=== PATIENT | male | born 1985 | race Caucasian/White ===

== ENCOUNTER 2019-01-29 01:54 | Inpatient (IN) ==
[~2019-01-29 01:54] MED LIST: AMIDATE ONE; DIPRIVAN 1% 1,000 MG/100 ML BOTTLE ONE; QUELICIN ONE
[2019-01-29] MEDS ORDERED: NS 1,000 ML ONE (01:57)
[2019-01-29] MEDS ORDERED: AMIDATE IV ONE (02:15)
[2019-01-29] MEDS ORDERED: DIPRIVAN 1% IV ONE (02:15)
[2019-01-29] MEDS ORDERED: QUELICIN IV ONE (02:15)
[2019-01-29] MEDS ORDERED: NS 1,000 ML IV ONE ×3 (02:15→04:45)
[2019-01-29] MEDS: DIPRIVAN 1% 1,000 MG/100 ML BOTTLE IV SCH ×14 (02:16→22:24)
[2019-01-29] MEDS ORDERED: PROTONIX 80 MG in NS 80 ML IV SCH (02:45)
[2019-01-29 02:56] LABS: BE -3.9 mmoll (-3.0-3.0); BLOOD TYPE ARTERIAL; HCO3-(ACT) 21.7 mmoll (20.0-26.0); METHB 1.3 % (0.0-1.5); O2(CT) 23.7 mL/dL (15.0-23.0); O2HB 91.8 % (95.0-99.0); PCO2(98.6) 43 mmHg (35-45); PO2(98.6) 113 mmHg (60-100); SAMPLE BLOOD; SAO2 99.5 % (95.0-100.0); THB 18.3 g/dL (11.5-17.4); pH(98.6) 7.32 (7.35-7.45)
[2019-01-29 02:57] LABS: SRATE 14 BPM; TVOL 550 mL
[2019-01-29 03:04] LABS: URINE SOURCE CATH
[2019-01-29] MEDS ORDERED: LABETALOL IV ONE (03:05)
[2019-01-29] MEDS ORDERED: ATIVAN IV ONE (03:05)
[2019-01-29 03:06] LABS: BASO# 0.06 X1000 (0.0-0.2); BASO% 0.5 % (0.0-0.8); EOS# 0.19 X1000 (0.0-0.7); EOS% 1.7 % (0.0-10.0); HEMATOCRIT 52.7 % (42.0-52.0); IMM GRAN# 0.02 X1000 (0.0-0.04); IMM GRAN% 0.2 % (0.0-0.5); LYMPH# 2.61 X1000 (1.2-3.4); LYMPH% 22.9 % (20.5-51.1); MCH 32.3 PG (27-31); MCHC 34.2 g/dL (33-37); MCV 94.4 FL (81-99); MONO# 1.12 X1000 (0.11-0.59); MONO% 9.8 % (1.7-9.3); MPV 12.1 FL (7.4-10.4); NEUT% 64.9 % (42.2-75.2); PLT 302 X1000 (130-400); RBC 5.58 XMIL (4.7-6.1); RDW 13.8 % (11.5-14.5)
[2019-01-29 03:29] LABS: ACETAMINOPHEN < 1.2 ug/mL (10-30); AGAP 17; ALBUMIN 4.7 g/dL (3.5-5.0); ALKALINE PHOSPHATASE 81 U/L (32-122); BUN 8 mg/dL (8-22); CALCIUM 9.1 mg/dL (8.8-10.2); CHLORIDE 100 mmol/L (98-107); COSMO 273; CREATININE 0.8 mg/dL (0.7-1.2); ESTIMATED GFR > 60; GLUCOSE 112 mg/dL (70-104); GOT 23 U/L (10-34); GPT 18 U/L (10-44); POTASSIUM 3.4 mmol/L (3.5-5.1); SALICYLATES < 3.00 mg/dL (3-10); SODIUM 137 mmol/L (136-145); TCO2 21 mmol/L (25-35); TOTAL BILIRUBIN < 0.15 mg/dL (0.20-1.00); TOTAL PROTEIN 7.6 g/dL (6.3-8.3)
[2019-01-29 03:29] LABS: BILIRUBIN URINE NEGATIVE (NEGATIVE); BLOOD URINE TRACE (NEGATIVE); CLARITY CLEAR (CLEAR); COLOR YELLOW; GLUCOSE URINE NEGATIVE (NEGATIVE); KETONE URINE NEGATIVE (NEGATIVE); LEUKOCYTES URINE NEGATIVE (NEGATIVE); NITRITE URINE NEGATIVE (NEGATIVE); PROTEIN URINE TRACE mg/dL (NEGATIVE); UROBILINOGEN URINE NORMAL
[2019-01-29 03:33] LABS: URINE BACTERIA 1+ /HFP; URINE EPITHELIAL CELLS <10 /HPF (<10); URINE RBC <10 /HPF (<10); URINE WBC <10 /HPF (<10)
[2019-01-29 03:47] LABS: BE -6.7 mmoll (-3.0-3.0); BLOOD TYPE ARTERIAL; HCO3-(ACT) 19.3 mmoll (20.0-26.0); O2(CT) 22.5 mL/dL (15.0-23.0); PCO2(98.6) 39 mmHg (35-45); PO2(98.6) 58 mmHg (60-100); SAMPLE BLOOD; SAO2 91.7 % (95.0-100.0); THB 18.5 g/dL (11.5-17.4)
[2019-01-29] MEDS ORDERED: DUONEB (A & A) INH ONE (03:50)
[2019-01-29 03:54] LABS: UR AMPHETAMINES QUAL NONE DETECTED (NONE DETECT); UR BARBITUATES QUAL NONE DETECTED (NONE DETECT); UR BENZODIAZEPIN QUAL NONE DETECTED (NONE DETECT); UR CANNABINOIDS QUAL PRESUMPTIVE POSITIVE (NONE DETECT); UR COCAINE QUAL NONE DETECTED (NONE DETECT); UR METHADONE QUAL PRESUMPTIVE POSITIVE (NONE DETECT); UR METHAMPHETAMINE QUAL NONE DETECTED (NONE DETECT); UR OPIATES QUAL NONE DETECTED (NONE DETECT); UR OXYCODONE QUAL NONE DETECTED (NONE DETECT); UR PCP QUAL NONE DETECTED (NONE DETECT); UR PROPOXYPHENE QUAL NONE DETECTED (NONE DETECT); UR TCA QUAL NONE DETECTED (NONE DETECT)
[2019-01-29 04:02] LABS: ALLEN TEST NO; MODALITY VENTILATOR
[2019-01-29] MEDS ORDERED: ZITHROMAX 500 MG/NS 500 MG/250 ML IVPB IV ONE (04:04)
[2019-01-29] MEDS ORDERED: ROCEPHIN 2 GM in NS 50 ML IV ONE (04:04)
[2019-01-29 04:05] LABS: ALLEN TEST NO; MODALITY VENTILATOR; O2HB 86.7 % (95.0-99.0)
--- NOTE | 2019-01-29 04:27 | PROVIDER DOCUMENTATION ---
This chart was entered by Karey Diaz Scribe, acting as scribe for Germán Garcia MD. [id number] Abuse/Overdose - General Chief Complaint: Overdose Stated Complaint: OVERDOSE Time Seen by Provider: 01/29/19 01:56 Source: EMS Allergies/Adverse Reactions: Allergies Allergy/AdvReac Type Severity Reaction Status Date / Time Sulfa (Sulfonamide AdvReac RASH Verified 08/06/18 16:15 Antibiotics) - History of Present Illness-Drug/Alcohol Nature of Presenting Problem: pt is a 33 yowm presenting w/first resp ems w/a drug overdose. family told ems pt took approx 100 25 mg tablets of benadryl, and unknown amt of Zilretta, on scene only 2 pills were found. ems sts pt drank 8 12oz beers in last 4 hours. pt given 4 narcan enroute. ems looked for pt walking in drainage ditch for 1.5hr and found him face down. pt had attempted to run away. pt is hypertensive, tacyhpnic and tachycardic. pt bag assisted and oral airway is in place among arrival. ems sts pt has hx of drug abuse and has ran away before. This episode of drinking or use began:: 1-3 hours ago - Substance Abuse Substance Use: reports: none presently/history of abuse, alcohol - Overdose List substance(s) ingested.: benadryl and zilretta Suicide Risk Assessment: male sex, age >65, drug or ETOH abuse Review of Systems - Adult - REVIEW OF SYSTEMS - ADULT ROS:: limited per condition (ros per ems) Constitutional: reports: no symptoms reported Eyes: reports: no symptoms reported Ears, Nose, Mouth & Throat: reports: no symptoms reported Cardiovascular: reports: no symptoms reported Respiratory: reports: no symptoms reported Gastrointestinal: reports: no symptoms reported Genitourinary: reports: no symptoms reported Musculoskeletal: reports: no symptoms reported Integumentary: reports: no symptoms reported Neurological: reports: no symptoms reported Psychiatric: reports: alcohol/drug dependence (drug OD) Endocrine: reports: no symptoms reported Hematologic/Lymphatic: reports: no symptoms reported Allergic/Immunologic: reports: no symptoms reported All Other Systems: Reviewed and Negative Past History - Adult - PAST MEDICAL HISTORY-ADULT Review of Records: reports: Old Records Reviewed, Nursing Assessment Review, Medications Reviewed, Social history reviewed & non-contributory. Major Childhood Illnesses: reports: denies history Cardiovascular: reports: denies history Respiratory: reports: denies history Gastrointestinal: reports: denies history Obstetrical/Gynecological: reports: denies history Genitourinary: reports: denies history Musculoskeletal: reports: denies history Neurological: reports: denies history Endocrine/Immune: reports: denies history Other Conditions: reports: denies history - IMMUNIZATION STATUS Childhood Immunizations: See Nurse Assessment Flu Vaccine: See Nurse Assessment - FAMILY HISTORY Family History: reviewed, not pertinent - SOCIAL HISTORY Substance Use: none presently/history of abuse, alcohol Physical Exam-General - PHYSICAL EXAM-ADULT Initial Vital Signs Reviewed: Yes - CONSTITUTIONAL General Appearance: obtunded - EYES Eyes: other (3-4mm bilat, sluggish). negative: PERRL/EOMI, EOM palsy, subconjunctival hemorrhage - RESPIRATORY Respiratory: chest non-tender, normal breath sounds, no pleuratic chest pain, rhonchi (some left lung), other (tachypnic, pt has good breath sounds but has large amt of fluid in lungs.). negative: lungs clear, decreased breath sounds, stridor, wheezing - CARDIOVASCULAR Cardiovascular: normal peripheral pulses, tachycardia, other (htn, 168/112, 176/123). negative: regular rate, rhythm, extra beats, friction rub, irregularly irregular - GASTROINTESTINAL (ABDOMEN) Abdominal Exam: distended. negative: soft - MUSCULOSKELETAL Peripheral Pulses: radial (R): 2+, radial (L): 2+ - SKIN Integumentary: normal color, normal turgor, warm/dry, abrasion(s) (rt knee), other (dirt left leg). negative: diaphoresis, laceration(s), warm - NEUROLOGIC Neurologic: other (unable to assess due to pt conditon) - PSYCHIATRIC Psych/Mental Status: disoriented x 3, disheveled. negative: normal mood/affect, normal thought content, normal thought process, oriented x 3 Progress - PLAN OF CARE/RESULTS Progress/Plan/Lab Results: Vital Signs - 8 hr 01/29/19 02:30 01/29/19 03:00 01/29/19 03:55 Temperature 96.8 F L Pulse Rate 113 H 82 Respiratory Rate 27 H 18 Blood Pressure 191/138 O2 Sat by Pulse Oximetry 96 98 Laboratory Results - last 24 hr 01/29/19 01/29/19 01/29/19 01:58 02:01 02:01 WBC RBC Hgb Hct MCV MCH MCHC RDW Std Deviation Plt Count MPV Immature Gran % (Auto) Neut % (Auto) Lymph % (Auto) Cameron % (Auto) Eos % (Auto) Baso % (Auto) Immature Gran # (Auto) Neut # (Auto) Lymph # (Auto) Cameron # (Auto) Eos # (Auto) Baso # (Auto) Specimen Type Sample Site pH pCO2 pO2 HCO3 Base Excess Oxyhemoglobin ABG O2 Sat (Calculated) ABG O2 Saturation ABG Carboxyhemoglobin ABG Methemoglobin Lester Test A-a O2 Difference Total Hemoglobin Lactate Blood Gas Modality Vent Mode Spontaneous Rate FiO2 % Tidal Volume PEEP Sodium 137 Potassium 3.4 L Chloride 100 Carbon Dioxide 21 L Anion Gap 17 BUN 8 Creatinine 0.8 Estimated GFR/1.73 m2 > 60 BUN/Creatinine Ratio 10 Glucose 112 H POC Glucose 105 H Calculated Osmolality 273 Calcium 9.1 Total Bilirubin < 0.15 L AST 23 ALT 18 Alkaline Phosphatase 81 Total Protein 7.6 Albumin 4.7 Globulin 3.0 Albumin/Globulin Ratio 2.0 Urine Source Urine Color Urine Clarity Urine pH Ur Specific Conde Urine Protein Urine Ketones Urine Blood Urine Nitrite Urine Bilirubin Urine Urobilinogen Urine Microscopic RBC Urine WBC Urine Microscopic WBC Ur Epithelial Cells Urine Bacteria Urine Glucose Salicylates < 3.00 L Urine Opiates Screen Ur Oxycodone Screen Urine Methadone Screen U Propoxyphene Qual Acetaminophen < 1.2 L Ur Barbituates Screen Ur Tricyclics Screen Ur Phencyclidine Scrn Ur Amphetamines Screen U Methamphetamines Scrn U Benzodiazepines Scrn Urine Cocaine Screen U Cannabinoids Screen Plasma/Serum Ethyl Alc 155 H 01/29/19 01/29/19 01/29/19 02:01 02:25 02:25 WBC 11.40 H RBC 5.58 Hgb 18.0 Hct 52.7 H MCV 94.4 MCH 32.3 H MCHC 34.2 RDW Std Deviation 13.8 Plt Count 302 MPV 12.1 H Immature Gran % (Auto) 0.2 Neut % (Auto) 64.9 Lymph % (Auto) 22.9 Cameron % (Auto) 9.8 H Eos % (Auto) 1.7 Baso % (Auto) 0.5 Immature Gran # (Auto) 0.02 Neut # (Auto) 7.40 H Lymph # (Auto) 2.61 Cameron # (Auto) 1.12 H Eos # (Auto) 0.19 Baso # (Auto) 0.06 Specimen Type Sample Site pH pCO2 pO2 HCO3 Base Excess Oxyhemoglobin ABG O2 Sat (Calculated) ABG O2 Saturation ABG Carboxyhemoglobin ABG Methemoglobin Lester Test A-a O2 Difference Total Hemoglobin Lactate Blood Gas Modality Vent Mode Spontaneous Rate FiO2 % Tidal Volume PEEP Sodium Potassium Chloride Carbon Dioxide Anion Gap BUN Creatinine Estimated GFR/1.73 m2 BUN/Creatinine Ratio Glucose POC Glucose Calculated Osmolality Calcium Total Bilirubin AST ALT Alkaline Phosphatase Total Protein Albumin Globulin Albumin/Globulin Ratio Urine Source CATH Urine Color YELLOW Urine Clarity CLEAR Urine pH 5.0 Ur Specific Conde 1.020 Urine Protein TRACE A Urine Ketones NEGATIVE Urine Blood TRACE Urine Nitrite NEGATIVE Urine Bilirubin NEGATIVE Urine Urobilinogen NORMAL Urine Microscopic RBC <10 Urine WBC NEGATIVE Urine Microscopic WBC <10 Ur Epithelial Cells <10 Urine Bacteria 1+ Urine Glucose NEGATIVE Salicylates Urine Opiates Screen NONE DETECTED Ur Oxycodone Screen NONE DETECTED Urine Methadone Screen PRESUMPTIVE POSITIVE A U Propoxyphene Qual NONE DETECTED Acetaminophen Ur Barbituates Screen NONE DETECTED Ur Tricyclics Screen NONE DETECTED Ur Phencyclidine Scrn NONE DETECTED Ur Amphetamines Screen NONE DETECTED U Methamphetamines Scrn NONE DETECTED U Benzodiazepines Scrn NONE DETECTED Urine Cocaine Screen NONE DETECTED U Cannabinoids Screen PRESUMPTIVE POSITIVE A Plasma/Serum Ethyl Alc 01/29/19 01/29/19 02:35 03:30 WBC RBC Hgb Hct MCV MCH MCHC RDW Std Deviation Plt Count MPV Immature Gran % (Auto) Neut % (Auto) Lymph % (Auto) Cameron % (Auto) Eos % (Auto) Baso % (Auto) Immature Gran # (Auto) Neut # (Auto) Lymph # (Auto) Cameron # (Auto) Eos # (Auto) Baso # (Auto) Specimen Type ARTERIAL ARTERIAL Sample Site L BRACHIAL L BRACHIAL pH 7.32 L 7.30 L pCO2 43 39 pO2 113 H 58 L HCO3 21.7 19.3 L Base Excess -3.9 L -6.7 L Oxyhemoglobin 91.8 L 86.7 L* ABG O2 Sat (Calculated) 23.7 H 22.5 ABG O2 Saturation 99.5 91.7 L ABG Carboxyhemoglobin 6.40 H* 4.50 H ABG Methemoglobin 1.3 1.0 Lester Test NO NO A-a O2 Difference 546.0 606.0 Total Hemoglobin 18.3 H 18.5 H Lactate 2.20 2.50 H Blood Gas Modality VENTILATOR VENTILATOR Vent Mode A/C A/C Spontaneous Rate 14 550 FiO2 % 100.0 100.0 Tidal Volume 550 14 PEEP 5.0 5.0 Sodium Potassium Chloride Carbon Dioxide Anion Gap BUN Creatinine Estimated GFR/1.73 m2 BUN/Creatinine Ratio Glucose POC Glucose Calculated Osmolality Calcium Total Bilirubin AST ALT Alkaline Phosphatase Total Protein Albumin Globulin Albumin/Globulin Ratio Urine Source Urine Color Urine Clarity Urine pH Ur Specific Conde Urine Protein Urine Ketones Urine Blood Urine Nitrite Urine Bilirubin Urine Urobilinogen Urine Microscopic RBC Urine WBC Urine Microscopic WBC Ur Epithelial Cells Urine Bacteria Urine Glucose Salicylates Urine Opiates Screen Ur Oxycodone Screen Urine Methadone Screen U Propoxyphene Qual Acetaminophen Ur Barbituates Screen Ur Tricyclics Screen Ur Phencyclidine Scrn Ur Amphetamines Screen U Methamphetamines Scrn U Benzodiazepines Scrn Urine Cocaine Screen U Cannabinoids Screen Plasma/Serum Ethyl Alc Orders Category Date Time Status Cardiac Monitoring DIRECTED Care 01/29/19 02:13 Active Finger Stick Blood Sugar (ED) DIRECTED Care 01/29/19 02:13 Active [place] Cath Insertion ORDERED Care 01/29/19 02:13 Active NG/OG/Feeding Tube Insertion ORDERED Care 01/29/19 02:13 Active CHEST-PORTABLE [RAD] Stat Exams 01/29/19 02:01 Taken CHEST-PORTABLE [RAD] Stat Exams 01/29/19 03:[address] HEAD/C-SPINE W/O CONTRAST [CT] Stat Exams 01/29/19 02:14 Taken ABG [RESP] Routine Lab 01/29/19 02:35 Completed ABG [RESP] Routine Lab 01/29/19 03:30 Completed ACETAMINOPHEN [TDM] Stat Lab 01/29/19 02:01 Completed ALCOHOL BLOOD Stat Lab 01/29/19 02:01 Completed BLOOD CULTURE [BLDCUL] Stat Lab 01/29/19 04:04 Ordered CBC WITH ELECTRONIC DIFF [HEME] Stat Lab 01/29/19 02:01 Completed COMPREHENSIVE METABOLIC PANEL [CHEM] Stat Lab 01/29/19 02:01 Completed LACTATE, PLASMA [CHEM] Stat Lab 01/29/19 04:04 Uncollected SALICYLATES [TDM] Stat Lab 01/29/19 02:[address] [URINALYSIS] Stat Lab 01/29/19 02:25 Completed URINE DRUG SCREEN PL Stat Lab 01/29/19 02:25 Completed URINE MICROSCOPIC [URINALYSIS] Stat Lab 01/29/19 02:25 Completed 0.9% Sodium Chloride Inj [Ns] 1,000 ml Med 01/29/19 01:57 Discontinued .ROUTE As directed 0.9% Sodium Chloride Inj [Ns] 1,000 ml Med 01/29/19 02:15 Discontinued IV 999 mls/hr 0.9% Sodium Chloride Inj [Ns] 1,000 ml Med 01/29/19 03:41 Active IV 999 mls/hr 0.9% Sodium Chloride Inj [Ns] 80 ml Med 01/29/19 02:45 Active Pantoprazole [Protonix] 80 mg IV 10 mls/hr Albuterol 2.5MG/Ipratrop 0.5MG [Duoneb (A & A)] Med 01/29/19 03:50 Disc ontinued 3 ml INH NOW ONE Azithromycin 500 mg/Ns [Zithromax 500 mg/Ns] Med 01/29/19 04:04 Active 500 mg in 250 ml IV NOW CefTRIAXONE [Rocephin] 2 gm Med 01/29/19 04:04 Active 0.9% Sodium Chloride Inj [Ns] 50 ml IV NOW Etomidate [Amidate] Med 01/29/19 01:52 Discontinued 20 mg .ROUTE .STK-MED ONE Etomidate [Amidate] Med 01/29/19 02:15 Discontinued 20 mg IV NOW ONE Labetalol Med 01/29/19 03:05 Discontinued 20 mg IV NOW ONE Lorazepam [Ativan] Med 01/29/19 03:05 Discontinued 2 mg IV NOW ONE Propofol [Diprivan 1%] Med 01/29/19 02:15 Discontinued 10 mg IV NOW ONE Propofol [Diprivan 1%] Med 01/29/19 01:53 Discontinued 1,000 mg in 100 ml .ROUTE As directed Propofol [Diprivan 1%] Med 01/29/19 02:15 Active 1,000 mg in 100 ml IV As Directed mls/hr Succinylcholine [Quelicin] Med 01/29/19 02:15 Discontinued 100 mg IV NOW ONE Succinylcholine [Quelicin] Med 01/29/19 01:52 Discontinued 200 mg .ROUTE .STK-MED ONE Aerosol Treatments Routine Oth 01/29/19 03:50 Active Aerosol Treatments Stat Oth 01/29/19 03:50 Active Overdose (suspected) Stat Oth 01/29/19 02:12 Ordered EKG [EKG] Stat Ther 01/29/19 02:13 Ordered Result Diagrams: 01/29/19 02:01 01/29/19 02:01 - REASSESSMENT Reassessment #1 Time Reassessed: 03:26 Status: unchanged (BP still very high despite propofol sedation, so will give ativan IV and Labetalol IV.) Reassessment Comment: old chart reviewed, no prior OD Reassessment #2 Time Reassessed: 04:02 Status: improving (Patient's vitals have improved, except sats 90% on FiO2 by NRB. Will culture and give IV rocephin/zithromax as initial CXR looked like early aspiration, and EMS reported they suctioned vomit out of oropharynx at scene.) - EKG 1 Time of EKG reading by physician:: 02:23 EKG Read and Signed by:: Germán Garcia EKG Interpretation (*Must complete 3 of following elements*): Abnormal Rate: 122 Rhythm: sinus tachycardia [place]: normal QRS: LVH, other (LAE) OH Interval: normal ST Wave: non-specific ST changes - XRAY 1 Impression: Abnormal (read by me at 0300: ETT 3cm above vic. NGT in stomach. Cardiac silhouette normal, no rib fractures or PTX. Questionable bilateral interstital infiltrates (early).) 2 XRAY Study: Chest Impression: Abnormal (read by me at 0415: Unchanged from CXR number 1) - CT/MRI 1 CT Study: Head (and C-Spine withouf) Impression: Abnormal (per Real Dr. Yolette Kaye: Impression: 1. Multifocal acute sinus fluid. 2. No acute intracranial findings within limitations of motion artifact. CT C-SPine shows NO ACUTE FRACTURE), See EMR Report - CONSULTS/PCP/HOSPITALIST Notification #1 *Consult/PCP/Hospitalist*: Moose paged at [id number] Time Discussed: 04:26 Consult Disposition: Admit (Will see when he gets there) Procedures - GASTRIC LAVAGE Nasogastric Lavage: Particulate Matter (RNs placed NGT and was unable to suction despite proper placement on CXR. I placed Adan lavage tube without difficulty, and lavaged approximately 1300mL of NS and had approximately 1200ml of pink fluid mixed with multiple pill fragments. After the 1200ml pink fluid returned, some bright red blood with clots returned, so Adan was stopped. OG tube d/c when bloody and no more pill fragments visible. Protonix orderd.) - INTUBATION Time of Intubation: 02:08 Airway Evaluation: Copious Secretions Mallampati Class: 1 Intubation Method: orotracheal Equipment: ETT, Glidescope Tube Size (cm): 8.0 Pretreated with 100% Oxygen?: Yes (100mg sucs 0204) Breath Sounds after Intubation: equal ETT Primary Tube Confirmation: Capnometry CO2 Change, Chest Rise and Fall, Tube placement verified on XRAY Intubation Complications: oral-unsuccessful attempt (glidescope assist on second try after 1 attempt with 4-0Mac blade was unsuccessful.) Vent Settings: See Respiratory Therapy Notes Departure - Departure Date of Disposition Decision: 01/29/19 Time of Disposition Decision: 04:27 DIAGNOSIS: Hypoxemia, Aspiration pneumonitis Drug overdose, multiple drugs Qualifiers: Encounter type: initial encounter Injury intent: intentional self-harm Qualifie d Code(s): T50.902A - Poisoning by unspecified drugs, medicaments and biological substances, intentional self-harm, initial encounter Alcohol intoxication Qualifiers: Complication of substance-induced condition: uncomplicated Qualified Code(s): F10.920 - Alcohol use, unspecified with intoxication, uncomplicated Coma Qualifiers: Coma depth: [place] coma 3-8 Coma timing: at arrival to emergency department Qualified Code(s): R40.2432 - Linda coma scale score 3-8, at arrival to emergency department Methadone overdose Qualifiers: Encounter type: initial encounter Injury intent: intentional self-harm Qualified Code(s): T40.3X2A - Poisoning by methadone, intentional self-harm, initial encounter Disposition: ADMITTED INPATIENT 09 Certified Medical Emergency: Emergent Condition: Critical Referrals and Follow-Ups: None,PCP [Primary Care Provider] - - Critical Care Note This patient required my direct & personal management of CC.: Yes Total Time (mins): 55 ([employer]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 Attestation - Physician/ OMI Attestation Patient care was provided by Advanced Practice Provider:: No The physician spent face to face time with patient:: Yes Advanced Practice Provider documentation review:: Supervising physician onsite and consulted in the evaluation and care of this patient. The physician did have a face to face encounter with the patient. Glascow Coma Score - Glascow Coma Score Best Eye Response (Linda): (1) no response Best Verbal Response (Linda): (1) no verbal response Best Motor Response (Linda): (3) flexion to pain Linda Total: 5 This chart was documented by the indicated scribe, (Karey Diaz, Bj) and accurately reflects the services I performed and decisions made by me, Germán Garcia MD, as attested by the provider's signature.
[2019-01-29 06:56] LABS: SRATE 14 BPM; TVOL 550 mL
--- NOTE | 2019-01-29 07:29 | Diag Imaging Result Doc PS360 ---
EXAM: CHEST-PORTABLE HISTORY: hypoxic TECHNIQUE: Portable chest COMPARISON: 01/29/2019 FINDINGS: Endotracheal tube in good position. Nasogastric tube overlies the esophagus and stomach. Heart is borderline mildly prominent. The infiltrates and atelectasis in the right base. There may be a tiny right effusion as well. IMPRESSION: Mild worsening. Electronically signed by Milo Mckinney 01/29/2019 7:27 AM
[2019-01-29] MEDS ORDERED: ZOFRAN IV PRN (07:46)
[2019-01-29] MEDS ORDERED: DUONEB (A & A) INH PRN (07:53)
[2019-01-29] MEDS ORDERED: LEVAQUIN 500 MG/D5W 500 MG/100 ML IVPB IV SCH (08:00)
--- NOTE | 2019-01-29 08:05 | Diag Imaging Result Doc PS360 ---
EXAM: CT HEAD/C-SPINE W/O CONTRAST INDICATION: AMS, fall TECHNIQUE: This exam was performed using automated exposure control, adjustment of mA or kV according to patient size, and/or use of iterative reconstruction technique. COMPARISON: None. FINDINGS: Head: There is no definite acute infarct given the limited sensitivity of CT versus MRI. There is no discrete intracranial mass, mass effect, or intracranial hemorrhage. There are air-fluid levels in the ethmoid and sphenoid sinuses that are assumed to be due to intubation. Surrounding soft tissues are unremarkable, otherwise. The calvaria is intact. C-spine: There is moderate degenerative disc disease at C5-6 with loss of disc space height and marginal osteophyte formation. This is causing mild central canal and moderate foraminal narrowing. Otherwise, there is no discrete fracture, subluxation, or intrinsic osseous lesion. There are at least mild infiltrates at the lung apices. Surrounding soft tissues are essentially unremarkable, otherwise. IMPRESSION: 1.No evidence of acute intracranial pathology. 2.Degenerative changes at C5-6 but no evidence of fracture or other definite acute C-spine injury. 3.Mild infiltrates at the lung apices. Electronically signed by Popeye Diaz 01/29/2019 8:03 AM
[2019-01-29 08:40] LABS: BASO# 0.02 X1000 (0.0-0.2); BASO% 0.1 % (0.0-0.8); EOS# 0.02 X1000 (0.0-0.7); EOS% 0.1 % (0.0-10.0); HEMATOCRIT 48.9 % (42.0-52.0); HEMOGLOBIN 16.9 g/dL (14.0-18.0); IMM GRAN# 0.07 X1000 (0.0-0.04); IMM GRAN% 0.3 % (0.0-0.5); LYMPH% 5.6 % (20.5-51.1); MCH 32.8 PG (27-31); MCHC 34.6 g/dL (33-37); MCV 94.8 FL (81-99); MONO# 1.41 X1000 (0.11-0.59); MONO% 6.1 % (1.7-9.3); MPV 11.3 FL (7.4-10.4); NEUT# 20.27 X1000 (1.4-6.5); NEUT% 87.8 % (42.2-75.2); PLT 252 X1000 (130-400); RBC 5.16 XMIL (4.7-6.1); WBC 23.09 X1000 (4.8-10.8)
[2019-01-29 08:49] LABS: ACETAMINOPHEN < 1.2 ug/mL (10-30); SALICYLATES < 3.00 mg/dL (3-10)
[2019-01-29 08:54] LABS: AGAP 17; ALB/GLOB RATIO 1.6; ALBUMIN 3.6 g/dL (3.5-5.0); ALKALINE PHOSPHATASE 62 U/L (32-122); BUN 9 mg/dL (8-22); CALCIUM 7.6 mg/dL (8.8-10.2); CHLORIDE 102 mmol/L (98-107); COSMO 275; CREATININE 0.7 mg/dL (0.7-1.2); ESTIMATED GFR > 60; GLUCOSE 108 mg/dL (70-104); GOT 18 U/L (10-34); GPT 15 U/L (10-44); MAGNESIUM 1.6 mg/dL (1.5-2.7); POTASSIUM 3.8 mmol/L (3.5-5.1); SODIUM 138 mmol/L (136-145); TCO2 19 mmol/L (25-35); TOTAL BILIRUBIN 0.26 mg/dL (0.20-1.00); TOTAL PROTEIN 5.9 g/dL (6.3-8.3)
--- NOTE | 2019-01-29 08:54 | EKG Report ---
Test Performed on : 01/29/2019 08:31:39 AM Test Reason : follow up Blood Pressure : / mmHG Vent. Rate : 089 BPM Atrial Rate : 089 BPM P-R Int : 124 ms QRS Dur : 094 ms QT Int : 414 ms P-R-T Axes : 057 064 053 degrees QTc Int : 503 ms Normal sinus rhythm. Possible Left atrial enlargement Prolonged QT Abnormal ECG No previous ECGs available Confirmed by Germain DAVALOS, Hector Choe ([id number]) on 01/29/2019 10:26:10 PM
[2019-01-29 09:18] LABS: BANDS 6 % (0-1); EOS 3 % (1-10); LYMPHS 9 % (21-51); MONO 3 % (1-9); SEGS 78 % (42-75)
[2019-01-29 09:19] LABS: LARGE PLATELETS 1+
[2019-01-29] MEDS: NS 1,000 ML IV SCH ×2 (09:52→15:03)
--- NOTE | 2019-01-29 10:20 | HISTORY AND PHYSICAL ---
PRIMARY CARE PROVIDER: None. CHIEF COMPLAINT: Overdose. All information came from [facility]. Patient is on propofol. No family at bedside. HISTORY OF PRESENT ILLNESS: Mr. Parish is a 33-year-old male who carries a past medical history of alcohol use. Per ED report, at [place] he reported via EMS with a drug overdose. The family told EMS he took approximately 100 25 mg tablets of Benadryl. An unknown amount of Zilretta. On scene only 2 pills are found. EMS also reported that the patient drinks a 12 out beers over a 4 hour period. He was given 4 mg of Narcan en route to the hospital. They were looking for the patient walking in a drainage ditch for an hour and a half before they found him face down. The patient attempted to run away. Initially, he was hypertensive tachypneic and tachycardic. He was bagged assisted and oral airway in place. Upon arrival, EMS also reported history of drug abuse and the patient has run away before. DATA: Diagnostic imaging is still currently pending with a chest x-ray. Head and cervical spine CT. He had a white count of 11, hemoglobin and hematocrit of 18 and 52, pH is 7.32 on mechanical ventilation and a plasma lactate of 2.5. Positive for methadone, cannabinoids. Serum alcohol level was 155. Salicylate was less than 3. Acetaminophen was less than 1.2. The patient is currently in the ICU at [facility], sedated on the vent with propofol. We will continue with IV antibiotics, IV fluids. Consult Pulmonology as well as orders for the nurse to call Poison Control to see if we need to be checking any more lab values. PAST MEDICAL HISTORY: Alcohol and drug abuse in the past. PAST SURGICAL HISTORY: Unknown. FAMILY HISTORY: Unknown. ALLERGIES: Sulfa causes a rash. HOME MEDICATIONS: Unknown. REVIEW OF SYSTEMS: Unable to obtain secondary to the patient being on propofol. No family at bedside. DIAGNOSTIC DATA: Currently pending. LABORATORY DATA: White count 11, hemoglobin and hematocrit 18 and 52, platelet count is 302,000. Chemistry sodium 137, potassium 3.4, BUN 8, creatinine 0.8, blood glucose is 112, plasma lactate 2.5. Urine, 1+ bacteria negative for nitrates. Tox screen positive for methadone, cannabinoids. Serum alcohol level 155, salicylates less than 3. Acetaminophen less than 1.2. ASSESSMENT AND PLAN: 1. Drug overdose. The patient was reported to take 100 of Benadryl as well as Zilretta. He is positive for cannabinoids and methadone as well as positive for alcohol. We will continue with n.p.o. status. Patient is currently intubated. We have consulted pulmonology as well as have nursing staff speak with Poison Control as well for any further recommendations. 2. Acute respiratory failure. Patient was hypoxic in the field and intubated. Consulted pulmonology. We will continue with aggressive pulmonary toilet, bronchodilators daily chest x- ray and arterial blood gas while on the vent. 3. Sepsis rule in. We will go ahead and continue with antibiotics for now. I will recheck a lactate. He was given IV fluids. He did not require any pressors. He was given Rocephin and Zithromax. We will continue with Rocephin and Levaquin. Currently awaiting patient's final results on his diagnostics with chest x-ray. 4. Alcohol use. 5. Drug use in the past. 6. Further recommendations to follow physician evaluation, laboratory data and diagnostic data. Dictated by LIYA Ferrer for Guilherme Curiel MD cc: MD Horacio Malik MD
[2019-01-29] MEDS: DUONEB (A & A) INH SCH ×4 (11:15→23:17)
[2019-01-29] MEDS: PROTONIX 80 MG in NS 80 ML IV SCH ×2 (13:32→21:56)
[2019-01-29] MEDS ORDERED: FLAGYL 500 MG/NS 500 MG/100 ML IVPB IV SCH (14:30)
[2019-01-29] MEDS: ZOSYN 3.375 GM in NS 50 ML IV SCH ×2 (14:56→19:31)
--- NOTE | 2019-01-29 18:54 | HISTORY AND PHYSICAL ---
ADDENDUM: Patient came in with a drug overdose which was intentional. Mother states he had been fighting with his girlfriend; unclear other details. She saw him take a handful of Benadryl, then she says he took the rest of the bottle, left the house, saw him taking more Benadryl, and then kind of disappeared. When he was found, he was unresponsive. He threw up though, I think, before that. He is a daily drinker, it looks like. I think the patient was responsive because he did try to run away, and then he was intubated and brought here. He is positive for methadone, cannabinoids. Reportedly, his alcohol level was 155; that was last night. The repeat is down to 32. Reportedly, up to 100 Benadryl taken. PHYSICAL EXAMINATION: His exam is unremarkable. He is still moving his hands and feet. He has a little bit of fever it looks like. He does have some right effusions. He has been placed on Levaquin and Rocephin. I am going to just stop the Rocephin and add Flagyl just because this may be an aspiration type pneumonia. PROBLEM LIST: 1. Acute respiratory failure, due to drug overdose. We will continue to monitor. Benadryl falls under an anticholinergic overdose, so we will need to monitor his QT, monitor for seizures, and follow closely. Pulmonary has been consulted. 2. Right lower lobe infiltrate, possible aspiration type pneumonia. Continue antibiotics, breathing treatments, and will follow. DISPOSITION: Pending clinical status. I am going to switch him off Levaquin just because it can prolong the QT, and will just switch him to Zosyn. This is a [id number] encounter note with Trudy Borden. Greater than 30 minutes critical care time for respiratory failure and severe encephalopathy, requiring intubation, and multiple other issues. cc: MD Horacio Malik MD
[2019-01-29 18:57] LABS: URINE SOURCE CATH
[2019-01-29 19:09] LABS: BILIRUBIN URINE NEGATIVE (NEGATIVE); BLOOD URINE NEGATIVE (NEGATIVE); COLOR YELLOW; GLUCOSE URINE NEGATIVE (NEGATIVE); KETONE URINE NEGATIVE (NEGATIVE); LEUKOCYTES URINE TRACE (NEGATIVE); NITRITE URINE NEGATIVE (NEGATIVE); PROTEIN URINE NEGATIVE (NEGATIVE); SP GRAVITY URINE 1.014; TURBIDITY URINE CLEAR (CLEAR); UROBILINOGEN URINE NORMAL (NORMAL)
[2019-01-29 19:11] LABS: UR EPITHELIAL CELLS <10 /HPF (<10); URINE BACTERIA NEGATIVE /HPF; URINE RBC <10 /HPF (<10); URINE WBC <10 /HPF (<10)
[2019-01-29 19:16] LABS: URINE CRYSTALS NONE SEEN
[2019-01-29] MEDS: MUCOMYST 20% INH SCH (19:43)
[2019-01-30] MEDS ORDERED: PHENOBARBITAL IV ONE (00:10)
[2019-01-30] MEDS ORDERED: TYLENOL PR PRN (00:10)
[2019-01-30] MEDS ORDERED: MORPHINE IV PRN (00:11)
[2019-01-30] MEDS: NS 1,000 ML IV SCH ×3 (00:40→16:37)
[2019-01-30] MEDS: DIPRIVAN 1% 1,000 MG/100 ML BOTTLE IV SCH ×4 (00:41→06:31)
--- NOTE | 2019-01-30 01:21 | PULMONOLOGY CONSULTATION ---
DATE: 01/29/2019 REQUESTING PHYSICIAN: Dr. Curiel. REASON FOR CONSULTATION: Respiratory failure. HISTORY OF PRESENT ILLNESS: Mr. Parish is a 33-year-old male who took an excess amount of Benadryl and some other drugs (ER note indicates Zilretta, but this is an injectable steroid) and was drinking alcohol. Patient ran away from the house and could not be located. The patient was eventually located by EMS laying in a ditch. He was hypertensive and agitated, and attempted to run away but was brought to the emergency room. He was subsequently intubated for increasing respiratory distress. He cannot participate in his history. ALLERGIES: To sulfonamides listed in the computer. PAST MEDICAL HISTORY: 1. History of tobacco use. 2. History of substance abuse. 3. History of alcohol use. SOCIAL HISTORY: Alcohol and drug abuse suggested by the admitting record. The patient's carboxyhemoglobin level was elevated consistent with tobacco use. SURGICAL HISTORY: Unknown. FAMILY HISTORY: Unknown. REVIEW OF SYSTEMS: Cannot be obtained. PHYSICAL EXAMINATION: General: Reveals a well-developed, well-nourished male who appears his stated age, in no distress. Vital signs: Blood pressure 125/74, oxygen saturation 99%, temperature 99.8 degrees. HEENT: Pupils are slightly dilated but reactive. Oropharynx appears dry but clear. Neck: Supple. Chest: Reveals coarse rhonchi bilaterally. Cardiac: S1, S2. Abdomen: Soft. Extremities: Reveal trace edema. LABORATORIES: Chest x-ray reveals right lower lobe pneumonia with endotracheal tube in good position. White blood count 23,000, hemoglobin 16.9, platelet count 252,000. Arterial blood gas #1 with pH 7.32, pCO2 of 43, pO2 of 113 on 100% FiO2, with a carboxyhemoglobin of 6.4 and a lactate of 2.2. Arterial blood gas #2 with pH 7.30, pCO2 of 39, pO2 of 58, with a carboxyhemoglobin level of 4.5, and a lactate of 2.5. Chemistries reveal slight increased anion gap. Sodium 138, potassium 3.8, chloride 102, bicarbonate 19, BUN 9, anion gap 17, creatinine 0.7. This has not shown progression. Toxicology is negative for salicylates and acetaminophen. Alcohol was elevated at 155 mg/dL. Cannabinoids are positive. Methadone screening is positive. IMPRESSION: A 33-year-old with alcohol use, presumptive substance use given screening, possible intentional drug overdose, acute hypoxemic respiratory failure, aspiration pneumonia. PLANS: 1. Send sputum for C and S. 2. Continue ventilatory support through the day. We will evaluate tomorrow for extubation if his oxygen requirements have diminished. 3. Continue current antibiotic regimen. 4. Continue IV fluids. 5. Counseled about the need to discontinue alcohol, tobacco, and illicit substances after extubation. TIME SPENT: Critical care management of 1 hour. cc: MD Horacio Jackson MD
[2019-01-30] MEDS: ZOSYN 3.375 GM in NS 50 ML IV SCH ×4 (01:37→19:30)
[2019-01-30] MEDS ORDERED: ROCEPHIN 1 GM in NS 50 ML IV SCH (02:00)
[2019-01-30] MEDS: DUONEB (A & A) INH SCH ×6 (03:18→23:44)
[2019-01-30 04:34] LABS: ALLEN TEST YES; BLOOD TYPE ARTERIAL; HCO3-(ACT) 24.9 mmoll (20.0-26.0); METHB 1.4 % (0.0-1.5); O2(CT) 23.8 mL/dL (15.0-23.0); O2HB 96.5 % (95.0-99.0); PCO2(98.6) 40 mmHg (35-45); PO2(98.6) 106 mmHg (60-100); SAMPLE BLOOD; SAO2 99.5 % (95.0-100.0); SRATE 14 BPM; THB 17.5 g/dL (11.5-17.4); TVOL 550 mL
[2019-01-30 04:36] LABS: MODALITY VENTILATOR
[2019-01-30 06:32] LABS: AGAP 13; ALB/GLOB RATIO 1.4; ALBUMIN 3.4 g/dL (3.5-5.0); ALKALINE PHOSPHATASE 61 U/L (32-122); BUN 8 mg/dL (8-22); CHLORIDE 103 mmol/L (98-107); COSMO 273; CREATININE 0.8 mg/dL (0.7-1.2); ESTIMATED GFR > 60; GLUCOSE 108 mg/dL (70-104); GOT 23 U/L (10-34); GPT 14 U/L (10-44); POTASSIUM 4.3 mmol/L (3.5-5.1); SODIUM 137 mmol/L (136-145); TCO2 21 mmol/L (25-35); TOTAL BILIRUBIN 0.45 mg/dL (0.20-1.00); TOTAL PROTEIN 5.9 g/dL (6.3-8.3)
[2019-01-30 07:02] LABS: BASO# 0.03 X1000 (0.0-0.2); BASO% 0.2 % (0.0-0.8); EOS# 0.01 X1000 (0.0-0.7); EOS% 0.1 % (0.0-10.0); HEMOGLOBIN 15.8 g/dL (14.0-18.0); IMM GRAN# 0.04 X1000 (0.0-0.04); IMM GRAN% 0.2 % (0.0-0.5); LYMPH# 1.61 X1000 (1.2-3.4); LYMPH% 8.2 % (20.5-51.1); MCH 32.5 PG (27-31); MCHC 33.6 g/dL (33-37); MCV 96.7 FL (81-99); MONO# 1.52 X1000 (0.11-0.59); MONO% 7.7 % (1.7-9.3); MPV 11.2 FL (7.4-10.4); NEUT# 16.43 X1000 (1.4-6.5); NEUT% 83.6 % (42.2-75.2); PLT 195 X1000 (130-400); RBC 4.86 XMIL (4.7-6.1); RDW 14.4 % (11.5-14.5); WBC 19.64 X1000 (4.8-10.8)
--- NOTE | 2019-01-30 07:22 | Diag Imaging Result Doc PS360 ---
EXAM: CHEST-PORTABLE 01/30/2019 HISTORY: on vent TECHNIQUE: AP portable at 0506 COMMENT: There is an endotracheal tube with its tip at the thoracic inlet and an NG tube which passes below the diaphragm. There is alveolar opacity in both lower lobes particularly the right lower lobe. This is slightly worse than on 01/29/2019. IMPRESSION: Worsened pulmonary edema versus pneumonia. Electronically signed by Ashok Alonzo 01/30/2019 7:20 AM
[2019-01-30] MEDS: MUCOMYST 20% INH SCH ×2 (07:30→19:59)
[2019-01-30] MEDS ORDERED: LASIX IV ONE (08:18)
[2019-01-30] MEDS ORDERED: VANCOMYCIN IV PER PHARMACY MISC SCH (08:30)
--- NOTE | 2019-01-30 09:09 | Diag Imaging Result Doc PS360 ---
EXAM: CHEST-PORTABLE HISTORY: tube placement TECHNIQUE: Portable chest COMPARISON: None. FINDINGS: Endotracheal tube in good position with the tip located approximately 4 cm above the vic. A nasogastric tube overlies the esophagus and stomach. No cardiomegaly. No consolidation. No pleural effusions identified. IMPRESSION: Endotracheal and nasogastric tubes in good position. Electronically signed by Milo Mckinney 01/29/2019 5:19 AM
[2019-01-30 09:22] LABS: ALLEN TEST NO; BE 1.6 mmoll (-3.0-3.0); BLOOD TYPE ARTERIAL; HCO3-(ACT) 26.2 mmoll (20.0-26.0); O2(CT) 24.1 mL/dL (15.0-23.0); O2HB 97.3 % (95.0-99.0); PCO2(98.6) 39 mmHg (35-45); PO2(98.6) 126 mmHg (60-100); SAMPLE BLOOD; SAO2 100.1 % (95.0-100.0); THB 17.5 g/dL (11.5-17.4); pH(98.6) 7.43 (7.35-7.45)
[2019-01-30 09:23] LABS: MODALITY VENTILATOR
--- NOTE | 2019-01-30 09:43 | PROGRESS NOTE ---
DATE: 01/30/2019 SUBJECTIVE: Patient is sedated and intubated. Patient is on propofol and according to nursing staff, he was needing IV morphine and IV Ativan on top of the propofol to keep him calmed down. He is sedated. OBJECTIVE: Vital Signs: Temperature 99.4 degrees, heart rate 95, respiratory 14, blood pressure 161/114, and O2 saturation 100% on mechanical ventilator at FiO2 50%. General: This is a 33-year- old male lying in bed in no acute distress. Sedated and intubated. HEENT: Head is normocephalic, atraumatic. Mucous membranes dry. Patient intubated. Neck: No JVD noted. No carotid bruits. No lymphadenopathy. Cardiovascular: S1, S2 heard. No murmurs, gallops, or rubs. Regular rate and rhythm. Respiratory: There is some transmitted sounds in both pulmonary [place]. The patient is not using any accessory muscles or having work of breathing. Abdomen: Soft. A little bit distended but nontender to palpation apparently. No signs of peritoneal irritation. Extremities: No clubbing, cyanosis, or edema. Peripheral pulses present in both legs. Neurological: Patient is sedated and intubated. LABORATORY DATA: White cell count 19.64, hemoglobin 15.8, hematocrit 47, and platelets 195,000 with ABG that shows pH 7.40 with pCO2 40, PO2 106. That was taken on ventilator at FiO2 50%. BMP is okay. The x-ray from today showed worsening pulmonary edema versus pneumonia. ASSESSMENT AND PLAN: 1. Acute respiratory failure secondary to drug overdose. The patient continues to be sedated and intubated. It has been difficult to keep him sedated even though he is on high doses of propofol requiring also morphine and Ativan. The patient is intubated for drug overdose secondary to cannabinoids and methadone, and also alcohol as well. I do not think this patient was also using any IV drugs or not. In any case, I prefer to go ahead and get an order for hepatitis panel and HIV. Patient requiring 50% oxygen by ventilators. At this point, we will follow recommendations from Pulmonary. 2. Aspiration pneumonia. Patient has been started on Zosyn. Because x-ray shows worsening pneumonia versus pulmonary edema, and the white cell count is still elevated I prefer to add vancomycin to his current treatment, and add also 1 dose of Lasix 80 mg IV and see if that helps. 3. Polysubstance abuse. Aware. We will advice this patient once he is more awake. 4. Alcohol abuse. Aware. We will continue to monitor. 5. Disposition: As we mentioned before, patient is intubated we will continue to monitor this patient closely. cc: MD Horacio Victor MD MTDD
[2019-01-30] MEDS: VANCOMYCIN 2 GM in NS 500 ML IV SCH ×2 (10:05→22:01)
[2019-01-30] MEDS ORDERED: PROTONIX IV ONE (10:26)
[2019-01-30] MEDS ORDERED: SODIUM CHLORIDE 0.9% INJ ONE (10:26)
[2019-01-30] MEDS ORDERED: ULTRAM PO PRN ×2 (11:26→13:33)
[2019-01-30 12:44] LABS: UR AMPHETAMINES QUAL NONE DETECTED (NONE DETECT); UR BARBITUATES QUAL PRESUMPTIVE POSITIVE (NONE DETECT); UR BENZODIAZEPIN QUAL NONE DETECTED (NONE DETECT); UR CANNABINOIDS QUAL NONE DETECTED (NONE DETECT); UR COCAINE QUAL NONE DETECTED (NONE DETECT); UR METHADONE QUAL NONE DETECTED (NONE DETECT); UR OPIATES QUAL NONE DETECTED (NONE DETECT); UR OXYCODONE QUAL NONE DETECTED (NONE DETECT); UR PCP QUAL NONE DETECTED (NONE DETECT)
[2019-01-30] MEDS: OFIRMEV 1000 MG/ISOTONIC SOLN 1,000 MG/100 ML BOTTLE IV SCH ×2 (13:39→19:30)
[2019-01-30] MEDS: TORADOL IV SCH ×2 (13:39→19:30)
--- NOTE | 2019-01-30 14:31 | Diag Imaging Result Doc PS360 ---
EXAM: LOWER LEG-RIGHT INDICATION: leg pain post fall TECHNIQUE: 3 views COMPARISON: None. FINDINGS: There is no discrete fracture, dislocation, or significant intrinsic osseous lesion. The visualized joint spaces are essentially unremarkable. The surrounding soft tissues are essentially unremarkable. IMPRESSION: No evidence of acute osseous abnormality. Electronically signed by Popeye Diaz 01/30/2019 2:29 PM
--- NOTE | 2019-01-30 14:33 | Diag Imaging Result Doc PS360 ---
EXAM: FEMUR MIN 2 VIEWS RIGHT INDICATION: Leg pain post fall TECHNIQUE: 4 views COMPARISON: None. FINDINGS: There is no discrete fracture, dislocation, or significant intrinsic osseous lesion. The visualized joint spaces are essentially unremarkable. The surrounding soft tissues are essentially unremarkable. IMPRESSION: No evidence of acute osseous abnormality. Electronically signed by Popeye Diaz 01/30/2019 2:30 PM
[2019-01-30] MEDS ORDERED: NS 50 ML ONE (14:34)
[2019-01-30 16:48] LABS: HIV ANTIBODY SCREEN SEE COMMENTS
[2019-01-30] MEDS ORDERED: PROTONIX PO SCH (21:00)
[2019-01-30] MEDS ORDERED: PRILOSEC PO SCH (21:00)
--- NOTE | 2019-01-31 00:48 | GASTROENTEROLOGY CONSULTATION ---
DATE: 01/30/2019 REASON FOR CONSULTATION: The consult was requested by Dr. Powers for GI evaluation. HISTORY OF PRESENT ILLNESS: Mr. Parish was admitted to the hospital yesterday with drug overdose. Apparently he had taken a lot of medication and was brought to the hospital with acute respiratory distress from his drug overdose. Apparently he had taken a lot of Benadryl. After admission the patient was intubated and had an NG tube placed. He had coffee-ground emesis, and consult was obtained for GI evaluation of possible upper GI bleed. When I came to see the patient in ICU, he had gone down for his skeletal x-rays to check for fractures, since he had sustained a fall. The case was discussed with the nurse, who informed me that there was no evidence of any melena but he did have some coffee ground in his NG aspirate. Chart reviewed revealed his hemoglobin was 15.8, hematocrit 47.0. His BUN was 8, creatinine 0.8. LFTs were normal. IMPRESSION AND PLAN: From a gastrointestinal perspective, I do not see any evidence of active bleeding per se, except for coffee-ground aspirate in his nasogastric tube, most likely from nasogastric trauma. Other than that, he does not have any signs of active bleeding requiring any Gastroenterology intervention. His liver function tests are normal. We will see the patient tomorrow for full consult. In the meantime, I would recommend to discontinue his nasogastric tube since he is awake and alert now, and also advise to start him on proton pump inhibitor, Prilosec for gastrointestinal prophylaxis. Depending on his progress from here on, further plans will be made. Again, the case was discussed with the nurse in the intensive care unit. cc: MD Horacio Wolff MD
--- NOTE | 2019-01-31 01:26 | PULMONOLOGY PROGRESS NOTE ---
DATE: 01/30/2019 SUBJECTIVE: The patient is on mechanical ventilation. He is currently on a sedation vacation. He has a good cough effort and is breathing without difficulty. OBJECTIVE: Vital Signs: Maximum temperature in the last 24 hours is 101.5 degrees. BP 158/107, heart rate 94, respiratory rate 18, oxygen saturation 100%. HEENT: Pupils are equal and reactive. Oropharynx is clear. Neck: Supple. Chest: Reveals diminished breath sounds left base with rhonchi bilaterally. Cardiac: Increased rate, regular rhythm. Abdomen: Soft. Extremities: Without edema. LABORATORIES: Chest x-ray reveals bibasilar infiltrates, but more prominent on the right. Sputum cultures are revealing normal don. White blood count 19.6, hemoglobin 15.8, platelet count 195,000. Sodium 137, potassium 4.3, chloride 103, bicarbonate 21, BUN 8, creatinine 0.8. IMPRESSION: A 33-year-old with presumptive drug overdose, alcohol use, aspiration pneumonia, acute hypoxemic respiratory failure, altered mental status. PLAN: 1. Continue current antibiotic regimen. 2. Spontaneous breathing trial. 3. Arterial blood gas when spontaneous breathing trial is completed to evaluate for extubation. 4. Counseling and possible psychiatric evaluation, pending mental status after extubation. TIME SPENT: Critical care management 35 minutes. cc: MD Horacio Jackson MD
[2019-01-31] MEDS: NS 1,000 ML IV SCH (01:42)
[2019-01-31] MEDS: ZOSYN 3.375 GM in NS 50 ML IV SCH ×4 (01:43→20:13)
[2019-01-31] MEDS: OFIRMEV 1000 MG/ISOTONIC SOLN 1,000 MG/100 ML BOTTLE IV SCH ×4 (01:43→20:14)
[2019-01-31] MEDS: TORADOL IV SCH ×4 (01:43→20:14)
[2019-01-31] MEDS ORDERED: BLISTEX MEDICATED BERRY LIP BALM TOP PRN (02:58)
[2019-01-31] MEDS: DUONEB (A & A) INH SCH ×6 (03:00→23:22)
[2019-01-31 04:47] LABS: ALLEN TEST YES; BE 2.6 mmoll (-3.0-3.0); BLOOD TYPE ARTERIAL; HCO3-(ACT) 26.9 mmoll (20.0-26.0); METHB 0.8 % (0.0-1.5); O2(CT) 20.2 mL/dL (15.0-23.0); O2HB 95.9 % (95.0-99.0); PCO2(98.6) 37 mmHg (35-45); PO2(98.6) 81 mmHg (60-100); SAMPLE BLOOD; SAO2 100.6 % (95.0-100.0); pH(98.6) 7.46 (7.35-7.45)
[2019-01-31 04:48] LABS: MODALITY COOL AEROSOL
[2019-01-31 05:29] LABS: BASO# 0.03 X1000 (0.0-0.2); BASO% 0.1 % (0.0-0.8); EOS# 0.11 X1000 (0.0-0.7); EOS% 0.5 % (0.0-10.0); HEMATOCRIT 43.5 % (42.0-52.0); HEMOGLOBIN 14.9 g/dL (14.0-18.0); IMM GRAN# 0.08 X1000 (0.0-0.04); IMM GRAN% 0.4 % (0.0-0.5); LYMPH# 1.04 X1000 (1.2-3.4); LYMPH% 4.9 % (20.5-51.1); MCH 32.8 PG (27-31); MCHC 34.3 g/dL (33-37); MCV 95.8 FL (81-99); MONO# 1.05 X1000 (0.11-0.59); MONO% 4.9 % (1.7-9.3); MPV 12.2 FL (7.4-10.4); NEUT# 18.93 X1000 (1.4-6.5); NEUT% 89.2 % (42.2-75.2); PLT 184 X1000 (130-400); RBC 4.54 XMIL (4.7-6.1); RDW 13.8 % (11.5-14.5); WBC 21.24 X1000 (4.8-10.8)
[2019-01-31 05:36] LABS: AGAP 15; ALKALINE PHOSPHATASE 64 U/L (32-122); BUN 6 mg/dL (8-22); CALCIUM 8.1 mg/dL (8.8-10.2); CHLORIDE 102 mmol/L (98-107); COSMO 279; CREATININE 0.8 mg/dL (0.7-1.2); ESTIMATED GFR > 60; GLUCOSE 126 mg/dL (70-104); GOT 25 U/L (10-34); GPT 11 U/L (10-44); POTASSIUM 2.8 mmol/L (3.5-5.1); SODIUM 140 mmol/L (136-145); TCO2 23 mmol/L (25-35); TOTAL BILIRUBIN 0.83 mg/dL (0.20-1.00); TOTAL PROTEIN 5.9 g/dL (6.3-8.3)
[2019-01-31] MEDS: PRILOSEC PO SCH (06:16)
--- NOTE | 2019-01-31 07:25 | Diag Imaging Result Doc PS360 ---
EXAM: CHEST-PORTABLE 01/31/2019 HISTORY: pt intubated, pna, pulmonary edema TECHNIQUE: AP portable at 0511 COMMENT: There are patchy alveolar opacities in both lung bases. This is worse than on 01/30/2019. Endotracheal tube and NG tube have been removed. IMPRESSION: Worsened bibasilar pneumonia. Electronically signed by Ashok Alonzo 01/31/2019 7:22 AM
[2019-01-31] MEDS: MUCOMYST 20% INH SCH ×2 (07:26→19:37)
[2019-01-31] MEDS ORDERED: POTASSIUM CHLORIDE 60 MEQ in NS 500 ML IV ONE (09:00)
[2019-01-31] MEDS: VANCOMYCIN 2 GM in NS 500 ML IV SCH ×2 (09:38→21:22)
--- NOTE | 2019-01-31 09:58 | PROGRESS NOTE ---
DATE: 01/31/2019 SUBJECTIVE: The patient had been successfully extubated yesterday. Now, he is requiring Ventimask. The patient reports breathing better. The patient reports that he tried actually to kill himself by taking an overdose of Benadryl. Not complaining of any pain at this time. OBJECTIVE: Vital Signs: Temperature 100.1 degrees, heart rate 109, respiratory rate 21, blood pressure 123/71, O2 saturation 96% on Venturi mask. General Examination: This is a 33-year-old, male, lying in bed, in no acute distress. HEENT: Head is normocephalic, atraumatic. Mucous membranes dry. Neck: No JVD noted. No carotid bruits. No lymphadenopathy. No thyromegaly. Cardiovascular: S1, S2 heard. No murmurs, gallops, or rubs. Regular rate and rhythm. Respiratory: Minimal coarse breath sounds noted in both pulmonary bases. Patient not using any accessory muscles or having work of breathing. Abdomen: Soft, a little bit distended. Nontender to palpation. No signs of peritoneal irritation. Bowel sounds present. No organomegaly. Extremities: No clubbing, cyanosis, or edema. Peripheral pulses present in both legs. Neurologic: The patient is alert and oriented x3. Moves all 4 extremities. LABORATORY DATA: White cell count 21.2, hemoglobin 14.9, hematocrit 43.5, platelets 184,000. An ABG shows pH 7.46, with pCO2 of 37, pO2 81. Potassium 2.8. Creatinine is normal. Glucose 126. ASSESSMENT/PLAN: 1. Acute respiratory failure secondary to drug overdose. That condition is improved. The patient has been extubated and requiring oxygen via Venturi mask. Clinically, he reports breathing better. We will continue providing DuoNeb every 4 hours as scheduled. Pulmonary following with this patient. We will follow recommendations. 2. Aspiration pneumonia. The patient is on vancomycin and Zosyn. Unfortunately his white cell count continues to get higher. I checked his list of medications and he is not on any steroids. An x-ray from this morning showed worsening bibasilar pneumonia. At this point, I am planning to keep checking x-rays but if his white cell count continues to get higher and chest x-ray continues to go worse, I think we are going to order a CT of the chest without contrast. In the meantime, we will continue with vancomycin and Zosyn. 3. Hypokalemia. In the x-ray from yesterday it was reported that the patient may have pulmonary edema. A chest x-ray from today showed that this is most likely infiltrates from aspiration pneumonia so at this point we are going to repeat potassium but I do not think the patient needs more Lasix. 4. Polysubstance abuse. The patient was counseled to stop abusing drugs. 5. Alcohol abuse. Aware. We will continue to monitor. 6. Suicidal attempt. The patient reports feeling very depressed. In that regard, we are going to start Lexapro on this patient and will consult Carroll Wyatt for further evaluation and treatment. DISPOSITION: I think this patient is stable so we are going to transfer him to a [facility]. cc: MD Horacio Victor MD
[2019-01-31] MEDS: MYCOSTATIN SUSP PO SCH ×4 (10:19→20:14)
[2019-01-31 10:32] LABS: HEPATITIS PROFILE ACUTE SEE COMMENTS
--- NOTE | 2019-01-31 22:39 | PULMONOLOGY CONSULTATION ---
DATE: 01/31/2019 NO DICTATION cc: MD Horacio Jackson MD
--- NOTE | 2019-01-31 22:39 | PULMONOLOGY PROGRESS NOTE ---
DATE: 01/31/2019 SUBJECTIVE: The patient is awake, alert, and conversant. He reports he "got depressed" when he was drinking and took the Benadryl. He does have a persistent cough. He is tolerating p.o. intake. OBJECTIVE: Maximum temperature in the last 24 hours of 100.5 degrees. HEENT: Pupils are equal and reactive. Oropharynx appears clear. Neck: Supple. chest: Decreased breath sounds at right base with bilateral rhonchi. Cardiac: S1, S2. Abdomen: Soft and without hepatosplenomegaly. Extremities: Without edema. LABORATORY AND DIAGNOSTIC DATA: Chest x-ray reveals bibasilar infiltrates slightly worse than yesterday. Microbiology reveals no new data. White blood count 21,000, hemoglobin 14.9, platelet count 184,000. Sodium 140, potassium 2.8, chloride 102, bicarbonate 23, BUN 6, creatinine 0.8. Arterial blood gas, pH 7.46, pCO2 of 37, PO2 of 81. IMPRESSION: A 33-year-old with: 1. Aspiration pneumonia. 2. Drug overdose. 3. Acute hypoxemic respiratory failure. PLAN: 1. Agree with transitioning patient to the PVC unit. 2. Continue antibiotic regimen. 3. Continue bronchial hygiene. 4. Complete psychiatric evaluation for drug overdose. cc: MD Horacio Jackson MD
[2019-02-01] MEDS: TORADOL IV SCH ×2 (01:07→08:58)
[2019-02-01] MEDS: OFIRMEV 1000 MG/ISOTONIC SOLN 1,000 MG/100 ML BOTTLE IV SCH ×3 (01:07→14:30)
[2019-02-01] MEDS: ZOSYN 3.375 GM in NS 50 ML IV SCH ×3 (01:28→08:58)
[2019-02-01] MEDS: DUONEB (A & A) INH SCH ×4 (03:40→15:55)
[2019-02-01] MEDS: PRILOSEC PO SCH (05:59)
[2019-02-01 06:49] LABS: BASO# 0.04 X1000 (0.0-0.2); BASO% 0.4 % (0.0-0.8); EOS# 0.36 X1000 (0.0-0.7); EOS% 3.4 % (0.0-10.0); HEMATOCRIT 43.1 % (42.0-52.0); HEMOGLOBIN 14.5 g/dL (14.0-18.0); IMM GRAN# 0.02 X1000 (0.0-0.04); IMM GRAN% 0.2 % (0.0-0.5); LYMPH# 0.92 X1000 (1.2-3.4); LYMPH% 8.7 % (20.5-51.1); MCH 32.2 PG (27-31); MCHC 33.6 g/dL (33-37); MCV 95.8 FL (81-99); MONO# 0.82 X1000 (0.11-0.59); MONO% 7.8 % (1.7-9.3); MPV 11.8 FL (7.4-10.4); NEUT# 8.37 X1000 (1.4-6.5); NEUT% 79.5 % (42.2-75.2); PLT 214 X1000 (130-400); RDW 13.8 % (11.5-14.5); WBC 10.53 X1000 (4.8-10.8)
[2019-02-01 07:23] LABS: AGAP 10; ALB/GLOB RATIO 0.9; ALBUMIN 2.9 g/dL (3.5-5.0); ALKALINE PHOSPHATASE 56 U/L (32-122); BUN 6 mg/dL (8-22); CHLORIDE 101 mmol/L (98-107); COSMO 269; CREATININE 0.6 mg/dL (0.7-1.2); ESTIMATED GFR > 60; GLUCOSE 85 mg/dL (70-104); GOT 25 U/L (10-34); GPT 9 U/L (10-44); POTASSIUM 3.3 mmol/L (3.5-5.1); SODIUM 136 mmol/L (136-145); TCO2 25 mmol/L (25-35); TOTAL BILIRUBIN 0.32 mg/dL (0.20-1.00)
[2019-02-01] MEDS: MUCOMYST 20% INH SCH (07:59)
[2019-02-01] MEDS ORDERED: KLOR-CON PO ONE (08:06)
[2019-02-01] MEDS: MYCOSTATIN SUSP PO SCH ×2 (08:58→13:34)
--- NOTE | 2019-02-01 09:18 | Diag Imaging Result Doc PS360 ---
EXAM: CHEST-2 VIEWS 02/01/2019 HISTORY: abnormal exam TECHNIQUE: PA and lateral chest COMMENT: There is ill-defined interstitial opacity bilaterally. This is less noticeable than on the previous study of 01/31/2019 although much of this is presumably due to the better inspiration on today's study. IMPRESSION: Improved pulmonary edema. Electronically signed by Ashok Alonzo 02/01/2019 9:16 AM
[2019-02-01] MEDS: VANCOMYCIN 2 GM in NS 500 ML IV SCH (10:03)
[2019-02-01 11:19] VITALS: BP 142/93
--- NOTE | 2019-02-01 15:19 | PULMONOLOGY PROGRESS NOTE ---
DATE: 02/01/2019 SUBJECTIVE: The patient is awake, alert, and conversant. He does report some cough and sputum production. OBJECTIVE: Vital Signs: The patient has been afebrile for the last 24 hours with a maximum temperature of 100.1 degrees. HEENT: Pupils are equal and reactive. Oropharynx is clear. Neck: Neck is supple. Chest: Reveals rhonchi at the right base. Cardiac exam: S1, S2. Abdomen: Soft without hepatosplenomegaly. Extremities: Without edema. LABORATORIES: Chest x-ray reveals continued decreased infiltrate in the lung bases. Microbiology reveals no new data. IMPRESSION: A 33-year-old with: 1. Aspiration pneumonia. 2. Acute hypoxemic respiratory failure with weaning of oxygen therapy. 3. Drug overdose. RECOMMENDATIONS: 1. The patient can be transitioned to an oral course of antibiotics for the next week. 2. Continue bronchial hygiene. 3. Complete psychiatric evaluation. From a pulmonary standpoint, the patient could be transitioned to [facility] or to home. cc: MD Horacio Jackson MD
--- NOTE | 2019-02-02 13:10 | DISCHARGE SUMMARY ---
ADMISSION DATE: 01/29/2019 DISCHARGE DATE: 02/01/2019 DISCHARGE DIAGNOSES: 1. Drug overdose, resolved. 2. Acute respiratory failure secondary to aspiration pneumonia improved. 3. Alcohol use. 4. Polysubstance abuse. PROCEDURES: 1. Chest x-ray done on admission showed endotracheal and nasogastric tube in good position. 2. Head and cervical spine showed no evidence of acute intracranial pathology, degenerative changes at C5-C6 but no evidence of fracture or other definite acute C-spine injury, and mild infiltrates in the lung apices. 3. Lower extremity x-ray showed no evidence of acute osseous abnormality. CONSULTATIONS: Dr. Deangelo Tovar from pulmonary. HOSPITAL COURSE: In brief, this is a 33-year-old, male with a past medical history of alcohol use who was brought to the emergency department at [facility] because apparently he had taken 100 tablets of Benadryl as a suicidal attempt. He also took a medication called Zilretta. In any case, the patient, at the time of the examination, was intubated so we transferred him to the intensive care unit. The UDS reveals cannabinoids and methadone positive. Apparently, he was having an argument with his girlfriend. He was successfully extubated 2 days after. He was found to have aspiration pneumonia. He was placed on Zosyn and vancomycin. He white cell count was elevated up to 23,000 but at discharge, it was completely back to normal. Once all his labs were normal, we consulted [facility] for evaluation for suicidal attempt but, of course, they say that he is not a candidate for inpatient treatment. He was deemed stable for discharge and he was prescribed by SSRI, Lexapro, and also antibiotics for a week. The patient is being discharged in stable condition. DISCHARGE PHYSICAL EXAMINATION: Vital Signs: Temperature 98.1 degrees, heart rate 93, respiratory rate 18, blood pressure 142/93, O2 saturation 93% on room air. General Examination: This is a 33-year-old, male, lying in bed, in no acute distress. Cardiovascular Examination: S1 and S2 heard. No murmurs, gallops, or rubs. Regular rate and rhythm. Respiratory Examination: Clear bilaterally to auscultation. No work of breathing or using accessory muscles. Abdomen: Soft, nontender to palpation. Bowel sounds present. No organomegaly. Extremities: No clubbing, cyanosis, or edema. Peripheral pulses present in both legs. Neurological Examination: The patient is alert and oriented x3. Moves 4 extremities. DISCHARGE DISPOSITION: Home to self-care. LIST OF MEDICATIONS: 1. Augmentin 750 mg p.o. q.12 hours. 2. Lexapro 10 mg 1 tablet p.o. daily. 3. Omeprazole 40 mg 1 tablet p.o. daily. FOLLOWUP: As Carroll Wyatt recommended to him. cc: MD Horacio Victor MD
== END 2019-02-01 16:36 | disposition home or self-care (01) | DRG 917 ==
LOC: P.ED 01:54 → SUATTDRO 05:13 → ICU 05:13 → 2N 01-31 16:13
PROVIDERS: ADMIT Internal Medicine; ATTEND Internal Medicine